=== PATIENT | female | born 1945 | race Caucasian/White ===

== ENCOUNTER 2016-09-27 12:07 | Emergency (ER) | payer MEDICARE ==
[2016-09-27 13:11] VITALS: BP 134/48
--- NOTE | 2016-09-27 13:17 | UC ---
Throat Pain/Nasal Glenn HPI - HPI Summary HPI Summary: woke up this morning with sore throat , nasal congestion, no fever, no chills . - History of Current Complaint Chief Complaint: UCGeneralIllness Stated Complaint: HEAD CONGESTION Time Seen by Provider: 09/27/16 12:48 Hx Obtained From: Patient Onset/Duration: Sudden Onset, Lasting Hours - 5, Still Present Severity: Mild Cough: None Associated Signs & Symptoms: Positive: Nasal Discharge. Negative: Sinus Discomfort, Fever, Rash - Allergies/Home Medications Allergies/Adverse Reactions: Allergies Allergy/AdvReac Type Severity Reaction Status Date / Time Codeine Allergy Vomiting Verified 09/27/16 13:05 PMH/Surg Hx/FS Hx/Imm Hx Endocrine History Of: Reports: Thyroid Disease - HYPOTHYROID - Surgical History Surgical History: Yes Surgery Procedure, Year, and Place: APPENDECTOMY- A CHILD; 04/07/13 bone spur removed and L 1st toenail removed - Family History Known Family History: Negative: Diabetes - Social History Alcohol Use: None Substance Use Type: None Smoking Status (MU): Former Smoker Type: Cigarettes When Did the Patient Quit Smoking/Using Tobacco: 1987 Review of Systems Constitutional: Negative Skin: Negative Eyes: Negative ENT: Sore Throat, Nasal Discharge Respiratory: Negative Cardiovascular: Negative Gastrointestinal: Negative Genitourinary: Negative All Other Systems Reviewed And Are Negative: Yes Physical Exam Triage Information Reviewed: Yes Appearance: Well-Appearing, No Pain Distress, Well-Nourished Vital Signs: Initial Vital Signs Temp 98.0 F 09/27/16 13:06 Pulse 66 09/27/16 13:06 Resp 16 09/27/16 13:06 BP 134/48 09/27/16 13:06 Pulse Ox 98 09/27/16 13:06 Vital Signs Reviewed: Yes Eye Exam: Normal Eyes: Positive: Conjunctiva Clear ENT: Positive: Normal ENT inspection, Hearing grossly normal, Pharynx normal, Nasal congestion. Negative: Pharyngeal erythema, Nasal drainage Neck: Positive: Supple, Nontender, No Lymphadenopathy Respiratory: Positive: Chest non-tender, Lungs clear, Normal breath sounds Cardiovascular: Positive: RRR, No Murmur, Pulses Normal Throat Pain/Nasal Course/Dx - Differential Dx/Diagnosis Provider Diagnoses: viral pharyngitis Discharge - Discharge Plan Condition: Stable Disposition: HOME Patient Education Materials: Pharyngitis (ED) Referrals: Nick Mccormick WIRE WINDING MACHINE TENDER [Primary Care Provider] - If Needed Additional Instructions: viral pharyngitis , no need for any abx increase fluid, tylenol for pain , wash hands frequently follow up as needed
== END 2016-09-27 13:53 | disposition home or self-care (01) ==
LOC: UCCORT 12:07
DX: J02.9 Acute pharyngitis, unspecified (principal); Z87.891 Personal history of nicotine dependence; Z88.5 Allergy status to narcotic agent
CPT/HCPCS: 87651; 99211; G0463

== ENCOUNTER 2017-06-14 09:51 | Emergency (ER) | payer MEDICARE ==
[2017-06-14 10:16] VITALS: BP 150/66
--- NOTE | 2017-06-14 11:43 | UC ---
Throat Pain/Nasal Glenn HPI - HPI Summary HPI Summary: 71 yo female with greater than one week hx of sinus congestion/post nasal drip and facial pressure intermittent bilat ear ache - History of Current Complaint Chief Complaint: UCRespiratory Stated Complaint: CHEST CONGESTION, COUGH Time Seen by Provider: 06/14/17 11:33 Hx Obtained From: Patient Onset/Duration: Gradual Onset Severity: Moderate Pain Intensity: 4 Pain Scale Used: 0-10 Numeric Cough: Nonproductive Associated Signs & Symptoms: Positive: Sinus Discomfort, Nasal Discharge - Epiglottits Risk Factors Epiglottis Risk Factors: Negative - Allergies/Home Medications Allergies/Adverse Reactions: Allergies Allergy/AdvReac Type Severity Reaction Status Date / Time Codeine AdvReac Vomiting Verified 06/14/17 10:12 Home Medications: Home Medications Omeprazole CAP* [Prilosec CAP* 20 MG] 20 mg PO DAILY PRN 06/14/17 [History Confirmed 06/14/17] PMH/Surg Hx/FS Hx/Imm Hx Previously Healthy: Yes GI/ History: Gastroesophageal Reflux - Surgical History Surgical History: Yes Surgery Procedure, Year, and Place: APPENDECTOMY- A CHILD; 04/07/13 bone spur removed and L 1st toenail removed - Family History Known Family History: Positive: Hypertension Negative: Diabetes - Social History Alcohol Use: Occasionally Substance Use Type: None Smoking Status (MU): Former Smoker Type: Cigarettes Length of Time of Smoking/Using Tobacco: 1-2 PPD for 25 Years When Did the Patient Quit Smoking/Using Tobacco: 1986 - Immunization History Most Recent Influenza Vaccination: Not the 2016/2017 Season Review of Systems Constitutional: Negative Skin: Negative Eyes: Negative ENT: Sore Throat, Ear Ache, Nasal Discharge, Sinus Congestion, Sinus Pain/ Tenderness Respiratory: Cough Cardiovascular: Negative Gastrointestinal: Negative Genitourinary: Negative Motor: Negative Neurovascular: Negative Musculoskeletal: Negative Neurological: Negative Psychological: Negative Is Patient Immunocompromised?: No All Other Systems Reviewed And Are Negative: Yes Physical Exam Triage Information Reviewed: Yes Appearance: Well-Appearing, No Pain Distress, Well-Nourished Vital Signs: Initial Vital Signs Temp 99.4 F 06/14/17 10:08 Pulse 82 06/14/17 10:08 Resp 18 06/14/17 10:08 BP 150/66 06/14/17 10:08 Pulse Ox 98 06/14/17 10:08 Eyes: Positive: Conjunctiva Clear ENT: Positive: Hearing grossly normal, Nasal congestion, Nasal drainage. Negative: TMs normal - right normal/left retracted, Tonsillar exudate, Trismus, Muffled/hoarse voice Neck: Positive: Supple, Nontender, No Lymphadenopathy Respiratory: Positive: Lungs clear, Normal breath sounds, No respiratory distress, No accessory muscle use Cardiovascular: Positive: RRR, No Murmur Musculoskeletal: Positive: ROM Intact, No Edema Neurological: Positive: Alert Psychological Exam: Normal Skin Exam: Normal Throat Pain/Nasal Course/Dx - Differential Dx/Diagnosis Provider Diagnoses: acute sinusitis Discharge - Discharge Plan Condition: Stable Disposition: HOME Prescriptions: Amoxicillin PO (*) [Amoxicillin 875 MG (*)] 875 mg PO BID #20 tab Fluticasone NASAL SPRAY 50MCG* [Flonase NASAL SPRAY 50MCG*] 2 spray BOTH NARES DAILY #1 btl Patient Education Materials: Sinusitis (ED) Referrals: Nick Mccormick CIRCULATION CLERK [Primary Care Provider] - 5 Days (if not better) Additional Instructions: recheck later this week if not better
== END 2017-06-14 11:48 | disposition home or self-care (01) ==
LOC: UCCORT 09:51
DX: J01.90 Acute sinusitis, unspecified (principal)
CPT/HCPCS: 99212; G0463

== ENCOUNTER 2018-03-11 09:29 | Emergency (ER) | payer MEDICARE ==
--- NOTE | 2018-03-11 09:44 | UC ---
Complaint Female HPI - HPI Summary HPI Summary: 72 year old F with urinary concern. URGENCY, FREQUENCY, FEELING LIKE SHE ISN'T EMPTYING BLADDER X2-3 DAYS AND NOW IS NOTICING HEMATURIA . no clots in urine no fever. no chills. no flank or abdominal pain. no n/v/d. has had ovarian cancer and had hysterectomy in January and now with work up for lung nodules. going to have bx in the future. no clots in urine. no pain otherwise [ End ] - History Of Current Complaint Stated Complaint: URINARY/BLEEDING Time Seen by Provider: 03/11/18 09:43 Hx Obtained From: Patient ?: No Onset/Duration: Gradual Onset Timing: Intermittent Aggravating Factor(s): Urination Associated Signs And Symptoms: Positive: Negative Related Hx: Similar Episode/Dx as: - Allergies/Home Medications Allergies/Adverse Reactions: Allergies Allergy/AdvReac Type Severity Reaction Status Date / Time codeine Allergy Vomiting Verified 03/11/18 09:52 Home Medications: Home Medications Losartan TAB* [Cozaar TAB*] 25 mg PO DAILY 03/11/18 [History Confirmed 03/11/18] Meclizine HCl [Motion Sickness II] 25 mg PO Q12HR PRN 03/11/18 [History Confirmed 03/11/18] PMH/Surg Hx/FS Hx/Imm Hx Previously Healthy: Yes Endocrine History: Hypothyroidism Cardiovascular History: Hypertension GI/ History: Gastroesophageal Reflux Cancer History: Other - ovarian cancer Other Cancer History: ovarian - Surgical History Surgical History: Yes Surgery Procedure, Year, and Place: APPENDECTOMY- A CHILD; 04/07/13 bone spur removed and L 1st toenail removed - Family History Known Family History: Positive: Hypertension Negative: Diabetes - Social History Occupation: Retired Lives: With Family Alcohol Use: Occasionally Substance Use Type: None Smoking Status (MU): Former Smoker Type: Cigarettes Length of Time of Smoking/Using Tobacco: 1-2 PPD for 25 Years When Did the Patient Quit Smoking/Using Tobacco: 1986 - Immunization History Most Recent Influenza Vaccination: Not the 2016/2017 Season Review of Systems Genitourinary: Dysuria, Hematuria, Frequency, Urgency Is Patient Immunocompromised?: No All Other Systems Reviewed And Are Negative: Yes Physical Exam Triage Information Reviewed: Yes Appearance: Well-Appearing, No Pain Distress, Well-Nourished Vital Signs Reviewed: Yes Eye Exam: Normal ENT Exam: Normal Dental Exam: Normal Neck exam: Normal Neck: Positive: 1 Respiratory Exam: Normal Cardiovascular Exam: Normal Abdominal Exam: Normal Musculoskeletal Exam: Normal Neurological Exam: Normal Psychological Exam: Normal Skin Exam: Normal Complaint Female Dx - Course Course Of Treatment: f/u with PCP or go to ED if Sx worsen treat as UTI at this time she is aware of SE from Abx - Differential Dx/Diagnosis Differential Diagnosis/HQI/PQRI: Ureteral Stone, Urinary Tract Infection Provider Diagnoses: UTI Discharge - Sign-Out/Discharge Documenting (check all that apply): Discharge/Admit/Transfer - Discharge Plan Condition: Good Disposition: HOME Prescriptions: Sulfamethox/Trimethoprim DS* [Bactrim DS 800/160 TAB*] 1 tab PO BID #10 tab Patient Education Materials: Hematuria (ED), Urinary Tract Infection in Older Adults (ED) Referrals: Nick Mccormick, INDUSTRIAL CHEMIST [Primary Care Provider] - 1 Week (please have your urine rechecked in 1-2 weeks or sooner if there is a concern ) - Billing Disposition and Condition Condition: GOOD Disposition: Home
[2018-03-11 09:48] VITALS: BP 140/54
--- NOTE | 2018-03-14 07:07 | UC ---
- Progress Note Progress Note: + E Coli pt on Bactrim \ sensitive no change bravoj 03/14/18 Discharge - Sign-Out/Discharge Documenting (check all that apply): Post-Discharge Follow Up - Discharge Plan Condition: Good Disposition: HOME Prescriptions: Sulfamethox/Trimethoprim DS* [Bactrim DS 800/160 TAB*] 1 tab PO BID #10 tab Patient Education Materials: Hematuria (ED), Urinary Tract Infection in Older Adults (ED) Referrals: Nick Mccormick SERVICE CENTER ASSISTANT [Primary Care Provider] - 1 Week (please have your urine rechecked in 1-2 weeks or sooner if there is a concern ) - Billing Disposition and Condition Condition: GOOD Disposition: Home
== END 2018-03-11 10:11 | disposition home or self-care (01) ==
LOC: UCCORT 09:29
DX: N39.0 Urinary tract infection, site not specified (principal); B96.20 Unspecified Escherichia coli [E. coli] as the cause of diseases classified elsewhere; Z88.5 Allergy status to narcotic agent; E03.9 Hypothyroidism, unspecified; Z87.891 Personal history of nicotine dependence
CPT/HCPCS: 81003; 87077; 87086; 87186; 99212; G0463

== ENCOUNTER 2018-04-10 16:56 | Emergency (ER) | payer MEDICARE ==
--- OUTSIDE RECORDS SUMMARY | 2018-04-10 17:07 | XMS REPORT | Continuity of Care Document ---
:1945 Author Organization [facility] Care Team Providers Name Role Phone TRACEE MCCORMICK Admitting Physician TRACEE MCCORMICK Attending Physician TRACEE MCCORMICK Primary Care Physician Allergies and Intolerances Code Code Allergy Type Reaction Severity Start End Status System Substance Date Date 20350522 RXNorm Darvon Drug Upset Unknown Active allergy stomach (disorder) 2670 RXNorm Codeine Drug Upset Unknown Active allergy stomach (disorder) Medications RxNorm Medication Dose Route Instructions Start Date End Date Status 862691 Cyclobenzaprine 5 mg oral orally 3 times Active hydrochloride 5 MG per day (8 days) Oral Tablet Levothyroxine Oral 137 mcg oral orally every day Active 103516 Losartan Potassium 25 25 mg oral orally every day Active MG Oral Tablet 957593 Meclizine 25 mg oral orally 2 times Active Hydrochloride 25 MG per day as Oral Tablet needed. 667656 Omeprazole 20 MG 20 mg oral orally every day Active Delayed Release Oral Tablet 176028 Omeprazole 40 MG 40 mg oral orally every day Active Delayed Release Oral Capsule Problems No Data in the system Procedures Code Code System Procedure Date 57812949 SNOMED CT Appendectomy 01/05/2018 Results Radiology Results Order: US-BREAST LIMITED LEFTExam Completion Date:03/10/2018 09:4903/10/2018 10:59 AM LEFT BREAST ULTRASOUND LOCATION: [facility] INDICATION/PATIENT HISTORY: She presents for six-month follow-up to probably benign sonographic findings. TECHNIQUE: Targeted left breast ultrasound was performed. COMPARISON: Comparison was made with priorstudies, most recent from [facility] dated 07/10/2017. FINDINGS: In the left breast at 1:00, 2 cm from the nipple there is an irregular hypoechoic mass without vascular flow measuring 0.4 x 0.5 x 0.5 cm. Additional scattered cysts are seen in the left breast with the largest at 8:00, 2 cm from the nipple measuring 1.1 x 1.2 x 0.9 cm. IMPRESSION: Irregular hypoechoic mass in the 1:00 left breast. We recommend an ultrasound-guided biopsy of the mass in the 1:00 left breast, 2 cm from the nipple. Dr. Domínguez discussed the results and recommendations with the patient by phone following the ultrasound exam. Andra, the stock feeder spoke with Baljit at Dr. Mccormick's office at 3:00 PM on 03/10/2018 regarding the recommendation for biopsy. We will also mail these results. BI-RADS ASSESSMENT CATEGORY: 4: Suspicious Abnormality - Biopsy Should Be Considered. mammobirads left Interpreted By: Cally LANGE Electronically signed By: Doc Domínguez M.D. ReadBy: RONA DOMÍNGUEZ Date: 03/12/2018 14:13 Social History Code Code System Social History Observation Description Dates Observed 071890223 SNOMED CT Current Smoking Status Never smoker UNK AdministrativeGender Sex Assigned At Unknown Vital Signs No data in the system Goals Section No data in the system Health Concerns No data in the systemEncounter Diagnosis Date Code Code System Diagnosis Status N63.20 ICD10 UNS LUMP IN LT BREAST UNS QUADRANT Active Advance Directives *RHIO - CONSENT IS YES Directive Type Effective Date Licensed Guide Notes Supporting Document Name Address Phone No Directive Type 06/12/2015 9:49:57 Not Specified Not Specified Not Specified None No specified AM Family History No data in the system Functional Status No data in the system Immunizations No data in the system Medical Equipment No data in the system Mental Status No data in the system Assessment and Plan Assessments No data in the systemPlan Of Treatment No data in the systemPending Tests No data in the system Hospital Discharge Instructions No data in the system Reason for Visit Reason for Visit US
[2018-04-10 17:15] VITALS: BP 127/65
--- NOTE | 2018-04-10 17:40 | UC ---
Neck Pain HPI - HPI Summary HPI Summary: Started with a stiff neck a week and a half ago and pain in the back part of the neck is now only bad at night. Not taking anything for the pain. Worse with certain movements in bed. - History of Current Complaint Chief Complaint: UCBackPain Stated Complaint: NECK PAIN *1 WEEK Time Seen by Provider: 04/10/18 17:28 Hx Obtained From: Patient Onset/Duration Of Injury/Symptoms: Weeks - 1 09/15 Mechanism Of Injury: No Known Trauma Onset/Duration: Sudden Onset, Still Present Severity: Moderate - at night. None now. 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 - Allergies/Home Medications Allergies/Adverse Reactions: Allergies Allergy/AdvReac Type Severity Reaction Status Date / Time codeine Allergy Vomiting Verified 04/10/18 17:06 Home Medications: Home Medications Omeprazole 40 mg PO DAILY 04/10/18 [History Confirmed 04/10/18] PMH/Surg Hx/FS Hx/Imm Hx Respiratory History: Asthma GI/ History: Gastroesophageal Reflux - Surgical History Surgical History: Yes Surgery Procedure, Year, and Place: APPENDECTOMY- A CHILD; 04/07/13 bone spur removed and L 1st toenail removed. Total Hysterectomy - Family History Known Family History: Positive: Hypertension Negative: Cardiac Disease, Diabetes - Social History Occupation: Employed Part-time Lives: Alone Alcohol Use: Occasionally Substance Use Type: None Smoking Status (MU): Former Smoker Type: Cigarettes Length of Time of Smoking/Using Tobacco: 1-2 PPD for 25 Years When Did the Patient Quit Smoking/Using Tobacco: 1986 - Immunization History Most Recent Influenza Vaccination: Not the Season Review Of Systems Musculoskeletal: Positive: Arthralgia - in the neck All Other Systems Reviewed And Are Negative: Yes Physical Exam Triage Information Reviewed: Yes Appearance: Well-Appearing, No Pain Distress, Obese Vital Signs: Initial Vital Signs Temp 97.2 F 04/10/18 17:08 Pulse 72 04/10/18 17:08 Resp 22 04/10/18 17:08 BP 127/65 04/10/18 17:08 Pulse Ox 99 04/10/18 17:08 Vital Signs Reviewed: Yes Eyes: Positive: Conjunctiva Clear Neck: Positive: Supple, No Lymphadenopathy, Tenderness @ - left side along the facets around C5 Respiratory Exam: Normal Cardiovascular Exam: Normal Musculoskeletal Exam: Normal Neurological Exam: Normal Psychological Exam: Normal Skin Exam: Normal Neck Pain Course/Dx - Differential Dx/Diagnosis Differential Dx/HQI/PQRI: Arthritis, Sprain, Strain, Torticollis Provider Diagnoses: Cervicalgia Discharge - Sign-Out/Discharge Documenting (check all that apply): Patient Departure - Discharge Plan Condition: Stable Disposition: HOME Prescriptions: Cyclobenzaprine (NF) [Cyclobenzaprine 5 MG (NF)] 5 mg PO BEDTIME PRN #30 tab PRN Reason: neck pain prevention Naproxen [Naproxen 375 mg tab] 375 mg PO BEDTIME PRN #30 tablet PRN Reason: neck pain prevention Patient Education Materials: Neck Pain (ED), Naproxen (By mouth), Cyclobenzaprine (By mouth) Referrals: Nick Mccormick LENS BLOCK GAUGER [Primary Care Provider] - Additional Instructions: If not getting better go get PT. - Billing Disposition and Condition Condition: STABLE Disposition: Home
== END 2018-04-10 18:08 | disposition home or self-care (01) ==
LOC: UCCORT 16:56
DX: M54.2 Cervicalgia (principal); Z88.4 Allergy status to anesthetic agent; Z87.891 Personal history of nicotine dependence
CPT/HCPCS: 99212; G0463

== ENCOUNTER 2018-12-23 14:56 | Emergency (ER) | payer MEDICARE ==
[2018-12-23 15:35] VITALS: BP 132/80
[2018-12-23] MEDS ORDERED: Ondansetron ODT TAB* 4 MG PO ONE (16:31)
--- NOTE | 2018-12-23 16:33 | UC ---
Dizzy HPI HPI Summary: History of BPPV, which typically resolves within a few minutes of taking meclizine, who has had persistent dizziness x 2 hours. Improved with meclizine, but as she was sitting and waiting, she has repeatedly opened and closed her eyes and found that her symptoms have worsened again. Nausea, off balance, no doublie vision, no headache. Ate several hours ago, no abdominal cramping or diarrhea. Had a fall abut 3 weeks ago when she twisted her ankle on the stairs, no head injury. Hx of hypertension, no diabetes. - History Of Current Complaint Chief Complaint: UCDizziness Stated Complaint: NAUSEA,LIGHT-HEADED Time Seen by Provider: 12/23/18 16:09 Hx Obtained From: Patient Onset/Duration: Sudden Onset, Lasting Hours Timing: Intermittent Episode Lasting - 3 hours Severity Initially: Moderate Severity Currently: Mild Pain Intensity: 0 Character: Lightheaded, Dizzy Aggravating Factor(s): Position Change Alleviating Factor(s): Rest, Other - meclizine Associated Signs And Symptoms: Positive: Nausea - Risk Factors Cardiac Risk Factors: Hypertension CVA Risk Factor: Hypertension - Allergies/Home Medications Allergies/Adverse Reactions: Allergies Allergy/AdvReac Type Severity Reaction Status Date / Time codeine Allergy Vomiting Verified 12/23/18 15:36 PMH/Surg Hx/FS Hx/Imm Hx Endocrine History: Thyroid Disease Cardiovascular History: Hypertension - Surgical History Surgical History: Yes Surgery Procedure, Year, and Place: APPENDECTOMY- A CHILD; 04/07/13 bone spur removed and L 1st toenail removed. Total Hysterectomy - Family History Known Family History: Positive: Hypertension Negative: Cardiac Disease, Diabetes - Social History Occupation: Employed Part-time - works at [employer] Lives: Alone Alcohol Use: Occasionally Substance Use Type: None Smoking Status (MU): Former Smoker Type: Cigarettes Length of Time of Smoking/Using Tobacco: 1-2 PPD for 25 Years When Did the Patient Quit Smoking/Using Tobacco: 1986 - Immunization History Most Recent Influenza Vaccination: Not the 2017/2017 Season Review of Systems All Other Systems Reviewed And Are Negative: Yes Constitutional: Positive: Negative Skin: Positive: Negative Eyes: Negative: Blurred Vision, Diplopia, Eye Redness ENT: Positive: Negative Respiratory: Negative: Shortness Of Breath, Cough Cardiovascular: Negative: Palpitations, Chest Pain Gastrointestinal: Positive: Nausea. Negative: Abdominal Pain, Vomiting, Diarrhea Genitourinary: Positive: Negative Motor: Positive: Other - recent right ankle injury Neurovascular: Positive: Negative Musculoskeletal: Positive: Arthralgia - ankle, denies osteoarthritis. Neurological: Negative: Headache, Weakness, Paresthesia, Numbness Psychological: Positive: Anxious Is Patient Immunocompromised?: No Physical Exam Triage Information Reviewed: Yes Appearance: Ill-Appearing - looks mildly unwell, hydration ok, Obese Vital Signs: Initial Vital Signs Temp 97.2 F 12/23/18 15:30 Pulse 76 12/23/18 15:30 Resp 16 12/23/18 15:30 BP 132/80 12/23/18 15:30 Pulse Ox 99 12/23/18 15:30 Eye Exam: Other - AMRIT, normal EOM without nystagmus. NO photophobia Eyes: Positive: Conjunctiva Clear ENT: Positive: Pharynx normal, TMs normal Dental Exam: Normal Neck: Positive: Supple, Nontender, No Lymphadenopathy Respiratory: Positive: Lungs clear, Normal breath sounds Cardiovascular: Positive: RRR, No Murmur Abdomen Description: Positive: Nontender, No Organomegaly, Soft Musculoskeletal Exam: Other - gait with right outtoeing, valgus deformity of knee Neurological Exam: Other - CNII-XII normal. No pronator drift. Gait is wide based and slow. + Romberg Neurological: Positive: Alert, Muscle Tone Normal Psychological Exam: Normal Skin Exam: Normal Diagnostics - Radiology CT brain Radiology Interpretation Completed By: Radiologist Summary of Radiographic Findings: negative study Re-Evaluation - Re-Evaluation First Eval Re-Evaluation Time: 15:35 - symptoms almost resolved, much improved gait Change: Improved Dizzy Course/Dx - Course Course Of Treatment: Continue meclizine, add ondansetron as needed for control of nausea. - Differential Dx/Diagnosis Differential Diagnosis/HQI/PQRI: Meniere's Disease, Vasovagal Reaction, Other - BPPV Provider Diagnosis: Benign positional vertigo Discharge - Sign-Out/Discharge Documenting (check all that apply): Patient Departure All imaging exams completed and their final reports reviewed: Yes - Discharge Plan Condition: Stable Disposition: HOME Prescriptions: Ondansetron TAB* [Zofran 4 MG Tab*] 4 mg PO Q8H PRN #10 tab PRN Reason: Nausea/Vomiting Patient Education Materials: Vertigo (ED) Referrals: Nick Mccormick, ROBOTICS TESTING TECHNICIAN [Primary Care Provider] - Additional Instructions: Continue use of meclizine, with additional ondansetron if needed. Please follow up with Nick Mccormick to review treatment options. You have a sheet for a positioning technize which can improve dizziness, or you can follow up with a physical therapist. - Billing Disposition and Condition Condition: STABLE Disposition: Home
== END 2018-12-23 18:03 | disposition home or self-care (01) ==
LOC: UCCORT 14:56
DX: H81.10 Benign paroxysmal vertigo, unspecified ear (principal); R11.0 Nausea; E07.9 Disorder of thyroid, unspecified; I10 Essential (primary) hypertension; Z88.5 Allergy status to narcotic agent; Z87.891 Personal history of nicotine dependence
CPT/HCPCS: 70450; 99212; A9270-GY; G0463